=== PATIENT | male | born 1950 | race Caucasian/White ===

== ENCOUNTER 2017-10-20 09:40 | Day surgery (SDC) | payer OTHER ==
--- NOTE | 2017-10-20 09:42 | RAD REPORT ---
EXAM DESCRIPTION: RAD - Chest Pa And Lat (2 Views) - 10/20/2017 9:37 am CLINICAL HISTORY: Hypertension Chest pain. COMPARISON: No comparisons FINDINGS: The lungs are clear. The heart is normal in size. No displaced fractures. Mildly tortuous thoracic aorta. IMPRESSION: No acute or concerning finding suspected.
[2017-10-20] MEDS ORDERED: FENTANYL CITR 100 MCG/2 ML ONE (09:51)
[2017-10-20] MEDS ORDERED: PROPOFOL 200 MG/20 ML VIAL IV ONE (09:51)
[2017-10-20] MEDS ORDERED: MIDAZOLAM HCL 2 MG/2 ML INJ ONE (09:52)
[2017-10-20] MEDS ORDERED: LIDOCAINE 2% MPF 5 ML VIAL ONE (09:52)
[2017-10-20] MEDS ORDERED: ONDANSETRON 4 MG/2 ML VIAL ONE (10:28)
[2017-10-20] MEDS ORDERED: GLYCOPYRROLATE 0.2 MG/ML SYR ONE (10:31)
[2017-10-20] MEDS ORDERED: ROCURONIUM 50 MG/5 ML VIAL IV ONE (10:31)
--- NOTE | 2017-10-20 11:00 | EKG ---
Test Date: 2017-10-20 Test Time: 09:21:22 [employer]: CRESCENCIO MEASUREMENT RESULTS: Intervals: Rate: 49 FL: 154 QRSD: 158 QT: 500 QTc: 451 [place]: P: 11 FL: 154 QRS: -39 T: 213 INTERPRETIVE STATEMENTS: Marked sinus bradycardia Left axis deviation Left bundle branch block Abnormal ECG No previous ECG available for comparison Electronically Signed On 10-20-17 10:59:49 CDT by Antonio Hartman
--- NOTE | 2017-10-20 15:49 | OP ---
Surgeon: Adolfo Tidwell MD Preoperative Diagnosis: Recurrent right carpal tunnel syndrome. Postoperative Diagnosis: Recurrent right carpal tunnel syndrome. Procedures: Carpal tunnel release. Excision portion of the carpal ligament, neurolysis of median ne rve, splint. Anesthesia: General. Procedure In Detail: After satisfactory induction of general anesthesia, the right arm was prepped w ith Betadine scrub, Betadine paint, dry sterile drapes placed in the usual manner. The arm was eleva rose and exsanguinated with Esmarch. Tourniquet inflated to 250 mmHg. Hand placed on a [place] table . A felt-tip marking pen used to outline a palmar incision extending proximally towards the wrist fl exion crease. Entry was made proximally, dissection proceeded distally, and median nerve was identif ied proximally and dissected free of the scar tissue. Neurolysis was done. The motor branch of the median was identified and preserved after the nerve was completely freed. Portion of transverse carp al ligament was transected, removed, approximately 2-3 mm to prevent recurrence. The floor was inspe cted and no masses or tumors seen. The tourniquet released. Electrocautery was used for hemostasis. Wound was closed with 4-0 Prolene vertical mattress, half buried mattress in simple sutures. Wrist dressed with Xeroform, 2 inch Rusty, and Kerlix and a splint to hold the wrist in 10 degrees dorsifl exion. The patient tolerated the procedure well. CLAIR/SAMUEL Voice ID: [id number] Report ID: [id number]
--- NOTE | 2017-10-20 21:30 | OP ---
Surgeon: Adolfo Tidwell MD Preoperative Diagnosis: Recurrent right carpal tunnel syndrome. Postoperative Diagnosis: Recurrent right carpal tunnel syndrome. Procedure: Right carpal tunnel release, partial excision of transverse carpal ligament, splint. Anesthesia: General. Procedure In Detail: After satisfactory induction of general anesthesia, the right hand was prepped with Betadine scrub, Betadine paint, dry sterile drapes applied in usual manner. The arm was elevate d and exsanguinated with an Esmarch. Tourniquet was inflated to 250 mmHg. Hand placed on [place] ta ble. A felt-tip marking pen was used to outline a zigzag incision approaching the wrist crease and c rossing it. A scalpel was used to incise the skin. Dissection proceeded from proximal to distal int o the unscarred area. The nerve was identified proximally in the wrist flexion crease and then disse ction proceeded distally with nerve visualized real time operator. The transverse carpal ligament or scar tis isatu had grown back, edges were excised taking about 3 mm margin. The median nerve was identified and sling. The area was identified. The floor was inspected. There were no masses causing the syndrom e. Tourniquet released. Electrocautery was used for hemostasis. Wound was closed with 4-0 Prolene vertical mattress, half buried mattress in simple sutures. Dressed with Xeroform, 2 inch Rusty, Kerl ix, and a splint to hold the wrist in 10 degrees dorsiflexion. The patient tolerated the procedure well and returned to recovery room. CLAIR/SAMUEL Voice ID: [id number] Report ID: [id number]
== END 2017-10-20 12:45 | disposition home or self-care (01) ==
LOC: OR 09:40
PROVIDERS: ATTEND Specialist
PROC: 01N50ZZ Release Median Nerve, Open Approach (ICD-10-PCS; principal; 2017-10-20 10:00)
DX: G56.01 Carpal tunnel syndrome, right upper limb (principal); I10 Essential (primary) hypertension
CPT/HCPCS: 64721; 71046; 88300; 93005; J2250; J2405; J3010